=== PATIENT | female | born 1950 ===

== ENCOUNTER 2022-12-18 14:10 | Outpatient (AMB) | payer MEDICARE, SELFPAY ==
--- NOTE | 2022-12-18 14:19 | AM.OFFWIN_ITS ---
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 She has palpitations but denies chest pain or shortness of breath. She moved back to [place] recently and ran out of metoprolol 5 days ago. Skin is warm and dry. O2 sat 98%, pulse [address] Walsh updated, ok for pt to wait for appt. Jeremy [facility] 2:21pm. 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 for a sick visit. Patient is return from [facility] recently. She does not have a primary care provider. She has run out of her metoprolol and requests a refill. Patient has been taking the same medication for many years. [facility] Social History Patient Tobacco Use Status: Never used Tobacco Physical Exam Vital Signs: Last Vital Signs Pulse 55 12/18/22 15:39 BP 122/80 12/18/22 15:39 Pulse Ox 98 12/18/22 15:39 Oxygen Delivery Method Room Air 12/18/22 15:39 BMI result Body Mass Index 28.5 Const General: cooperative and healthy appearing Nutritional Appearance: well nourished Orientation/consciousness: patient oriented x3 Limitations: no limitations HEENT Head: Yes normal to inspection Eyes General: appearance normal, both eyes and all related structures Neck Neck: Yes normal visual inspection Chest Chest palpation & inspection: normal palpation of entire chest wall Resp Effort & Inspection: normal respiratory effort Neuro General: patient oriented x3 Assessment & Plan Assessment & Plan (1) Essential hypertension: Code(s): I10 - Essential (primary) hypertension Plan: Prescription for metoprolol filled. Patient was advised to make an appointment with the primary care provider Medications: New metoprolol succinate ER 50 mg PO BID 60 tabs 0RF Coding Level of Care Code New Pt Level 3 (17416) Diagnoses Essential hypertension I10
[2022-12-18 15:39] VITALS: BP 122/80; PULSE 55; O2SAT 98; BMI 28.5
== END 2022-12-18 16:38 | disposition home or self-care (01) ==
PROVIDERS: PCP Nurse Practitioner Family; Visit Provider Internal Medicine
DX: I10 Essential (primary) hypertension (principal)
CPT/HCPCS: 99203

== ENCOUNTER 2023-01-01 07:27 | Outpatient (AMB) | payer MEDICARE, SELFPAY ==
[2023-01-01 07:30] VITALS: BP 132/80; PULSE 45; O2SAT 98; BMI 28.8
--- NOTE | 2023-01-01 07:30 | A.OFFPC_ITS ---
Vital Signs 01/01/23 07:30 Height 5 ft 7 in Weight 184 lb BMI 28.8 BP 132/80 Blood Pressure Location Lt brachial Position Sitting Pulse 45 L Pulse Source Pulse Oximeter Pulse Oximetry (%) 98 Oxygen Delivery Method Room Air Intake Visit Reasons: New Patient Water Control Supervisor Required: Yes Water Control Supervisor Name: Roxann [id number] Information Interpreted: non-clinical & clinical Allergies No Known Allergies Allergy (Verified 01/01/23 07:30) Tobacco use date assessed: 01/01/23 Fall risk assessment: No Falls in past year Last assessed Fall Risk: 01/01/23 Dental Screening Dental Screen Date: 01/01/23 Did you have a dental visit in the last 12 months?: Yes Did you have a dental problem in the last 6 months where you did not have access to dental care?: No Was dental information given to patient?: Patient has dentist HPI HPI Comments History of Present Illness Details 72-year-old Italian speaking female new patient presents today to establish care. Past medical history significant for hypertension, kidney stone left, thoracic back pain x1 year status post fall. Patient requesting x-ray, thoracic back x-ray ordered. Patient also reports that she was previously followed by cardiology manager was started on aspirin therapy for which sounds like atherosclerotic cardiovascular disease, patient reports she underwent cardiac catheterization in June 2022 which she reports was okay. Patient currently on metoprolol succinate ER 50mg BID for hx HTN and plapitations. Patient reports that she has bilateral leg pain on the medial aspect co knees for which she reports is related to history venous insufficiency, referral entered to vascular surgery. [facility] Medical History (Updated 01/01/23 @ 08:04 by ALCIDES Zheng) Gallstone Borderline high cholesterol Palpitations Family History Mother No problems noted. Father No problems noted. Daughter No problems noted. Son No problems noted. Social History (Updated 01/01/23 @ 07:49 by ALCIDES Zheng) Housing: Other Alcohol intake: never Patient Tobacco Use Status: Never used Tobacco e-Cigarette/Vaping Use: Never Used Second Hand Smoke Exposure: No Current occupational status: retired and disabled Cognitive needs: No Hearing needs: No Vision needs: Yes Questionnaire PHQ-9 Over the last 2 weeks, how often have you been bothered by any of the following problems? 1. Little interest or pleasure in doing things: several days 2. Feeling down, depressed, or hopeless: several days 3. Trouble falling or staying asleep, or sleeping too much: not at all 4. Feeling tired or having little energy: not at all 5. Poor appetite or overeating: not at all 6. Feeling bad about yourself - or that you are a failure or have let yourself or your family down: not at all 7. Trouble concentrating on things, such as reading the newspaper or watching television: not at all 8. Moving or speaking so slowly that other people could have noticed. Or the opposite - being so fidgety or restless that you have been moving around a lot more than usual: not at all 9. Thoughts that you would be better off or of hurting yourself in some way: not at all Total score: 2 Depression Screening Interpretation: Negative 81468 - PHQ-9 Billing: Yes Source: Developed by Drs. Babar Palencia, Leydi Valiente, Danis Ellsworth and colleagues, with an educational yayo from [employer]. Thrive Questionnaire Date Thrive assessed: 01/01/23 I am a: Patient What is your living situation today?: I have a steady place to live Within the past 12 months, did the food you bought not last and you didn't have the money to get more?: Never true Within the past 12 months, did you worry whether your food would run out before you got money to buy more?: Never true Do you have trouble paying for medicines?: No Do you have trouble getting transportation to medical appointments?: No Do you have trouble paying your heating and electricity bill?: No Do you have trouble taking care of your child, family member or friend?: No Do you have trouble with day-to-day activities such as bathing, preparing meals, shopping, managing finances, etc.?: No Are you currently unemployed and looking for a job?: No Are you interested in more education?: No Currently or been in a relationship where the following occur: no concerns reported AUDIT C Alcohol Use Questionnaire (AUDIT-C) 1. How often do you have a drink containing alcohol?: Never 3. How often do you have six or more drinks on one occasion?: Never Total Score: 0 ROBIN-7 AMB Questionnaire ROBIN-7 Date ROBIN - 7 assessed: 01/01/23 Feeling nervous, anxious, or on edge: 1 = Several days Not being able to stop or control worryin = Not at all Worrying too much about different things: 0 = Not at all Trouble relaxin = Not at all Being so restless that it is hard to sit still: 0 = Not at all Becoming easily annoyed or irritable: 0 = Not at all Feeling afraid as if something awful might happen: 0 = Not at all Total ROBIN-7 score (0-4 normal; 5-9 mild; 10-14 moderate; 15-21 severe): 1 Source: Developed by Drs. Babar Palencia, Leydi Valiente, Danis Ellsworth and colleagues, with an educational yayo from [employer]. ROBIN-7 Assessment Billing ROBIN-7 Assessment Tool: ROBIN-7 Assessment 21977 Review of Systems Const Denies chills, Denies fatigue, Denies fever(s) and Denies poor appetite Eyes Denies no additional complaints ENT Reports Normal hearing present Card Denies chest pain, Denies syncope, Denies rapid heart rate and Denies dyspnea Resp Denies cough and Denies dyspnea GI Denies change in stool character, Denies constipation, Denies diarrhea, Denies nausea and Denies vomiting Denies urinary frequency, Denies dysuria and Denies urinary urgency Musc Reports back pain (left sided thoracic back pain.) Neuro Reports Normal hearing present, Denies confusion and Denies syncope Psych Denies confusion Endo Denies fatigue Physical exam (Primary Care) Vital Signs: Last Vital Signs Pulse 45 L 01/01/23 07:30 BP 132/80 01/01/23 07:30 Pulse Ox 98 01/01/23 07:30 Oxygen Delivery Method Room Air 01/01/23 07:30 BMI result Body Mass Index 28.8 Tobacco/Smoking Status: Tobacco use Status Tobacco use date assessed 01/01/23 01/01/23 07:38 Patient Tobacco Use Status Never used Tobacco 01/01/23 07:49 e-Cigarette/Vaping Use Never Used 01/01/23 07:49 PHQ-9: PHQ-9 Score PHQ-9: Total score 2 01/01/23 07:53 Depression Screening Interpretation: Negative Thrive Assessment: Date of Thrive Assessment Date Thrive assessed 01/01/23 01/01/23 07:38 Currently or been in a relationship where the following occur: no concerns reported Const General: No confusion Orientation/consciousness: No confusion HENMT Head: Yes normocephalic and Yes atraumatic Eyes Conjunctivae: conjunctivae normal Chest Chest palpation & inspection: normal inspection of the chest Resp Effort & Inspection: normal respiratory effort Auscultation: clear to auscultation bilaterally, no crackles, no rhonchi and no wheezes Cardio Rate: regular rate Rhythm: regular rhythm Heart sounds: S1 normal heart sound present and S2 normal heart sound present Peripheral pulses: dorsalis pedis present GI Inspection: Yes normal to inspection Neuro General: No confusion Cranial nerves: Yes Normal hearing present Extrem General: No edema and Yes other (dilated veins noted to bilateral medial knees. ) Assessment and Plan Assessment & Plan (1) Venous insufficiency: Code(s): I87.2 - Venous insufficiency (chronic) (peripheral) Plan: Referral entered to vascular surgery. (2) ASCVD (arteriosclerotic cardiovascular disease): Code(s): I25.10 - Atherosclerotic heart disease of [place] coronary artery without angina pectoris Plan: Referral entered to establish care with cardiology manager. Continue on aspirin 81 mg. Fasting lipid panel. (3) Thoracic back pain: Code(s): M54.6 - Pain in thoracic spine Plan: Thoracic spine x-ray ordered to further evaluate. Patient advise can take [id number] Tylenol or ibuprofen as needed for pain. (4) Essential hypertension: Code(s): I10 - Essential (primary) hypertension Plan: Continue on metoprolol. Blood pressure goal less 140/90. Follow low-salt diet and exercise. Plan Follow-up in 3 months for physical exam. Orders: Orders Lipid Panel Today Z13.220 - Encounter for screening for lipoid disorders TSH reflex Free T4 Today Z13.29 - Encounter for screening for other suspected endocrine disorder XR thoracic spine 2V Today M54.6 - Pain in thoracic spine Complete Blood Count Auto Diff Today Z13.0 - Encounter for screening for diseases of the blood and blood-forming organs and certain disorders involving the immune mechanism Comprehensive Taylor. Panel Fast Today I10 - Essential (primary) hypertension Referrals Cardiology Referral I10 - Essential (primary) hypertension, I25.10 - Atherosclerotic heart disease of [place] coronary artery without angina pectoris Vascular Surgery Referral I87.2 - Venous insufficiency (chronic) (peripheral) Coding Level of Care Code New Pt Level 4 (03095) Diagnoses Venous insufficiency I87.2 ASCVD (arteriosclerotic cardiovascular disease) I25.10 Thoracic back pain M54.6 Essential hypertension I10 Additional Codes ROBIN-7 Assessment Billing - ROBIN-7 Assessment Tool: ROBIN-7 Assessment 61866 ([id number])
== END 2023-01-01 08:04 | disposition home or self-care (01) ==
PROVIDERS: PCP Nurse Practitioner Family; Visit Provider Nurse Practitioner Family
DX: I87.2 Venous insufficiency (chronic) (peripheral) (principal); I25.10 Atherosclerotic heart disease of native coronary artery without angina pectoris; M54.6 Pain in thoracic spine; I10 Essential (primary) hypertension
CPT/HCPCS: 99204

== ENCOUNTER 2023-01-01 08:15 | Outpatient (REF) | payer MEDICARE, SELFPAY ==
--- NOTE | ~2023-01-01 | XR_ITS ---
EXAMINATION: XR THORACIC SPINE CLINICAL INFORMATION: Reason for Exam M54.6 - Pain in thoracic spine COMPARISON: None TECHNIQUE: 3 views of the thoracic spine FINDINGS: Vertebral body heights are maintained. Alignment is maintained. Disc space heights are maintained. Atherosclerosis of the thoracic aorta. XR/XR thoracic spine 2V IMPRESSION: Disc space heights are maintained.
== END 2023-01-01 08:16 | disposition home or self-care (01) ==
LOC: HO.XRAY 08:15
PROVIDERS: PCP Nurse Practitioner Family; Visit Provider Nurse Practitioner Family
DX: M54.6 Pain in thoracic spine (principal)
CPT/HCPCS: 72070

== ENCOUNTER 2023-01-02 09:27 | Outpatient (REF) | payer MEDICARE, SELFPAY ==
[2023-01-02 09:50] LABS: MANUAL DIFF FLAG NO
[2023-01-02 10:19] LABS: Basophils Absolute Auto 0.1 X10*3/uL (0.0-0.2); Eosinophils Absolute Auto 0.2 X10*3/uL (0.0-0.4); Eosinophils Percent Auto 4.4 % (0-4); Hematocrit 40.8 % (37.0-47.0); Imm Gran Abs Auto 0.02 X10*3/uL (0.00-0.03); Imm Gran Pct Auto 0.4 % (0.0-0.4); Lymphocytes Absolute Auto 1.7 X10*3/uL (1.2-4.9); Lymphocytes Percent Auto 33.7 % (20-40); Mean Corpuscular HGB Conc 31.9 g/dl (31.0-35.0); Mean Corpuscular Hemoglobin 28.4 pg (27.0-33.0); Mean Corpuscular Volume 89.1 fL (80.0-98.0); Mean Platelet Volume 11.8 fL (9.4-12.3); Monocytes Absolute Auto 0.4 X10*3/uL (0.1-1.2); Neutrophils Absolute Auto 2.6 x10*3/uL (2.0-8.3); Neutrophils Percent Auto 52.5 % (45-73); Platelet Count 182 X10*3/uL (160-400); Red Blood Count 4.58 X10*6/uL (4.20-5.50); Red Cell Distribution Width 13.2 % (11.0-16.0)
[2023-01-02 10:57] LABS: Alanine Aminotransferase 8 U/L (0-31); Albumin Level 4.3 g/dL (3.5-5.0); Alkaline Phosphatase 74 U/L (39-117); Anion Gap 10 (12-20); Aspartate Amino Transferase 14 U/L (5-31); Bilirubin Total 0.5 mg/dL (0.0-1.0); Blood Urea Nitrogen 12 mg/dL (9-16); Calcium 10.1 mg/dL (8.4-10.2); Carbon Dioxide 27 mmol/L (22-29); Chloride 108 mmol/L (96-108); Cholesterol 227 mg/dL (<200); Estimated Glomerular Filt Rate > 60; Glucose Fasting 100 mg/dL (60-99); HDL Cholesterol 49 mg/dL (>40); LDL Cholesterol Calculated 146 mg/dL (<100); Potassium 4.8 mmol/L (3.3-5.1); Sodium 140 mmol/L (135-145); Total Protein 7.4 g/dL (6.5-8.0); Triglycerides 163 mg/dL (<150)
[2023-01-02 11:16] LABS: TSH reflex Free T4 2.45 uIU/mL (0.32-4.0)
== END 2023-01-02 09:28 | disposition home or self-care (01) ==
LOC: HO.LAB 09:27
PROVIDERS: PCP Nurse Practitioner Family; Visit Provider Nurse Practitioner Family
DX: I10 Essential (primary) hypertension (principal); Z13.220 Encounter for screening for lipoid disorders; Z13.0 Encounter for screening for diseases of the blood and blood-forming organs and certain disorders involving the immune mechanism; Z13.29 Encounter for screening for other suspected endocrine disorder
CPT/HCPCS: 36415; 80053; 80061; 84443; 85025

== ENCOUNTER 2023-02-19 11:22 | Outpatient (AMB) | payer MEDICARE, SELFPAY ==
--- NOTE | 2023-02-19 11:25 | MHC.OFFVIS ---
Intake Intake Visit Reasons: bilateral leg pain and swelling Intake Note: pt here today referred by PCP for bilateral leg swelling Pt states she is having lots of pain and swelling in both LE she also says like her legs cramp up and she has difficulty moving. 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 She reports a consistent constant pain. She has had a prior history of back issues. Interesting to note she had a cardiac catheterization in June in the [place]. She has no difficulty ambulating but is concerned about this consistent pain. She now presents for vascular evaluation with daughter at bedside. [facility] Medical History Gallstone Borderline high cholesterol Palpitations Family History Mother No problems noted. Father No problems noted. Daughter No problems noted. Son No problems noted. Social History Housing: Other Alcohol intake: never Patient Tobacco Use Status: Never used Tobacco e-Cigarette/Vaping Use: Never Used Second Hand Smoke Exposure: No Current occupational status: retired and disabled Cognitive needs: No Hearing needs: No Vision needs: Yes Review of Systems Const All systems reviewed & are unremarkable except as noted in HPI and below Reports no additional complaints ENT Reports Normal hearing present Card Denies chest pain, Denies chest pain at rest, Denies chest pain with activity and Denies pedal edema Resp Denies cough GI Denies abdominal pain Musc Denies abnormal gait, Denies muscle cramps and Denies radiating pain into limb Skin/Breast Denies skin ulcer and Denies wounds Neuro Reports Normal hearing present and Denies abnormal gait Psych Reports no additional complaints Physical Exam Const General: cooperative, healthy appearing and comfortable Orientation/consciousness: oriented to person, oriented to place and oriented to time HEENT Head: Yes normal to inspection Neck Neck: Yes normal visual inspection Carotids: no bruits Chest Chest palpation & inspection: normal inspection of the chest Resp Effort & Inspection: normal respiratory effort and able to speak in complete sentences Auscultation: clear to auscultation bilaterally, no crackles, no rales, no rhonchi and no wheezes Cardio Other: Bilateral palpable dorsalis pedis pulse Rate: regular rate Rhythm: regular rhythm Heart sounds: S1 normal heart sound present and S2 normal heart sound present Bruits: no carotid bruits Peripheral pulses: Peripheral pulses 2+ throughout GI Inspection: Yes normal to inspection Skin Wounds: no wounds Hair: normal Neuro General: oriented to person, oriented to place and oriented to time Cranial nerves: Yes CN's II-XII intact bilaterally and Yes Normal hearing present Cognition (Neuro): normal cognition Motor exam (neuro): 5/5 motor strength present throughout Extrem Other: venous exam: +1 edema General: No clubbing, No cyanosis and Yes edema Psych Appearance: grossly normal Mental Status: mental status grossly normal Speech and movement: Normal speech and movement present Assessment & Plan Assessment & Plan (1) Varicose veins of right lower extremity with inflammation: Code(s): I83.11 - Varicose veins of right lower extremity with inflammation Plan: Unclear etiology of lower extremity pain and discomfort. It does not appear to be arterial in nature as she does have palpable pulses. I have taken the liberty of ordering venous insufficiency testing to rule that out. I do believe there is a significant neurogenic component to all of this. This was discussed in detail with the patient and the patient's daughter who was at bedside. They are in agreement. She will follow up with us after testing. Thank you for allowing us to assist in her care. Orders: Orders US venous duplex LE BI 1 Week I83.11 - Varicose veins of right lower extremity with inflammation Coding Level of Care Code New Pt Level 4 (92753) Diagnoses Varicose veins of right lower extremity with inflammation I83.11
== END 2023-02-19 11:54 | disposition home or self-care (01) ==
PROVIDERS: PCP Nurse Practitioner Family; Visit Provider Surgery Vascular Surgery
DX: I83.11 Varicose veins of right lower extremity with inflammation (principal)
CPT/HCPCS: 99203

== ENCOUNTER → 2023-02-19 11:22 | Outpatient (BNVA) | payer MEDICARE, SELFPAY | PROVIDERS: PCP Nurse Practitioner Family; Visit Provider Surgery Vascular Surgery | DX: I83.11 Varicose veins of right lower extremity with inflammation (principal) | CPT/HCPCS: 99202 ==

== ENCOUNTER 2023-03-08 08:14 | Outpatient (REF) | payer MEDICARE, SELFPAY ==
--- NOTE | ~2023-03-08 | US_ITS ---
EXAMINATION: US VENOUS BILATERAL LOWER EXTREMITIES (REFLUX EXAM) CLINICAL INDICATION: Leg pain and varicose veins. COMPARISON: None TECHNIQUE: Color flow triplex imaging and compression Doppler was performed to evaluate both the deep and the superficial systems bilaterally. To evaluate the superficial system, the examination was performed in the upright position. Color-flow Doppler ultrasound and compression ultrasound were utilized. In addition, maneuvers were utilized to demonstrate reflux. FINDINGS: 1. DEEP VENOUS ULTRASOUND OF THE RIGHT LOWER EXTREMITY: Respiratory variation, normal compression and augmented flow are noted in the right common femoral vein as well as the right popliteal vein and there is no evidence of deep venous thrombosis at these locations. There is no evidence of reflux in the deep system in either the common femoral vein or the popliteal vein. There is no evidence of a Arias's cyst. 2. SUPERFICIAL ULTRASOUND WITH DOPPLER OF RIGHT LOWER EXTREMITY: The right great saphenous vein at the saphenofemoral junction measures 9 mm, at the proximal thigh 4 mm, at the mid thigh 3 mm, above the knee 5 mm, at the knee 3 mm, [id number] 2 mm, midcalf 2 mm and at the ankle measures 2 mm. There is no reflux demonstrated in the right great saphenous vein. Duplicated Right Great Saphenous Vein: None The right small saphenous vein measures 2 mm and shows no reflux. Accessory Vein of [place]: None Incompetent Perforators: None Varices Present: None 3. DEEP VENOUS ULTRASOUND OF THE LEFT LOWER EXTREMITY: Respiratory variation, normal compression and augmented flow are noted in the left common femoral vein as well as the left popliteal vein and there is no evidence of deep venous thrombosis at these locations. There is no evidence of reflux in the deep system in either the common femoral vein or the popliteal vein. There is no evidence of a Arias's cyst. 4. SUPERFICIAL ULTRASOUND WITH DOPPLER OF LEFT LOWER EXTREMITY: Left great saphenous vein at the saphenofemoral junction measures 11 mm, at the proximal thigh 11 mm, at the mid thigh 4 mm, above the knee 5 mm, at the knee 5 mm, [id number] 3 mm, midcalf 1 mm and at the ankle measures 2 mm. There is no reflux demonstrated in the left great saphenous vein. Duplicated Left Great Saphenous Vein: None The left small saphenous vein measures 2 mm and shows no reflux. Accessory Vein of [place]: None Incompetent Perforators: None. Varices Present: None US/US venous duplex LE BI IMPRESSION: 1. No evidence of reflux or thrombus in the common femoral veins or popliteal veins bilaterally. 2. The saphenous systems are competent bilaterally.
== END 2023-03-08 08:15 | disposition home or self-care (01) ==
LOC: HO.US 08:14
PROVIDERS: PCP Nurse Practitioner Family; Visit Provider Surgery Vascular Surgery
DX: I83.11 Varicose veins of right lower extremity with inflammation (principal)
CPT/HCPCS: 93970

== ENCOUNTER 2023-04-18 13:28 | Outpatient (AMB) | payer MEDICARE, SELFPAY ==
--- NOTE | 2023-04-18 13:50 | MHC.OFFVIS ---
Intake Vital Signs 04/18/23 13:51 Height 5 ft 7 in Weight 184 lb BMI 28.8 Intake Visit Reasons: Follow Up US Intake Note: follow up US 03/08/23, for VV, Right LE worse than Left LE, does have some spider veins and large veins. complains of right knee pain Patient Care Technician Name: Kellie [id number] Accompanied by: Self / Same As Patient Allergies No Known Allergies Allergy (Verified 04/18/23 13:54) HPI Follow Up US HPI Details Very pleasant 73-year-old female presents for follow-up regarding venous insufficiency. She reports no significant difficulty. She does have some pain over the right knee which appears to be more the tendon above the patella. No other interval issues. Now presents for follow-up with venous insufficiency testing. [facility] Medical History Gallstone Borderline high cholesterol Palpitations Family History Mother No problems noted. Father No problems noted. Daughter No problems noted. Son No problems noted. Social History Housing: Other Alcohol intake: never Patient Tobacco Use Status: Never used Tobacco e-Cigarette/Vaping Use: Never Used Second Hand Smoke Exposure: No Current occupational status: retired and disabled Cognitive needs: No Hearing needs: No Vision needs: Yes Review of Systems Const All systems reviewed & are unremarkable except as noted in HPI and below Reports no additional complaints ENT Reports Normal hearing present Card Denies chest pain, Denies chest pain at rest, Denies chest pain with activity and Denies pedal edema Resp Denies cough GI Denies abdominal pain Musc Denies abnormal gait, Denies muscle cramps and Denies radiating pain into limb Skin/Breast Denies skin ulcer and Denies wounds Neuro Reports Normal hearing present and Denies abnormal gait Psych Reports no additional complaints Physical Exam Vital Signs: BMI result Body Mass Index 28.8 Const General: cooperative, healthy appearing and comfortable Orientation/consciousness: oriented to person, oriented to place and oriented to time HEENT Head: Yes normal to inspection Neck Neck: Yes normal visual inspection Carotids: no bruits Chest Chest palpation & inspection: normal inspection of the chest Resp Effort & Inspection: normal respiratory effort and able to speak in complete sentences Auscultation: clear to auscultation bilaterally, no crackles, no rales, no rhonchi and no wheezes Cardio Rate: regular rate Rhythm: regular rhythm Heart sounds: S1 normal heart sound present and S2 normal heart sound present Bruits: no carotid bruits Peripheral pulses: Peripheral pulses 2+ throughout GI Inspection: Yes normal to inspection Skin Wounds: no wounds Hair: normal Neuro General: oriented to person, oriented to place and oriented to time Cranial nerves: Yes CN's II-XII intact bilaterally and Yes Normal hearing present Cognition (Neuro): normal cognition Motor exam (neuro): 5/5 motor strength present throughout Extrem Other: venous exam: No significant superficial varicosities or spider telangiectasias, minimal edema General: No clubbing, No cyanosis and No edema Psych Appearance: grossly normal Mental Status: mental status grossly normal Speech and movement: Normal speech and movement present Results Reviewed Results Reviewed: Brief summary of venous insufficiency testing is as follows: right great saphenous vein: negative right small saphenous vein: negative right accessory vein: none present left great saphenous vein: negative left small saphenous vein: negative left accessory vein: none present Please note there is no evidence of any venous aneurysms or significant tortuosity Assessment & Plan Assessment & Plan (1) Varicose veins of right lower extremity with inflammation: Code(s): I83.11 - Varicose veins of right lower extremity with inflammation Plan: In short patient is negative for any significant venous insufficiency. She does appear to have right knee discomfort. Should pain and symptoms persist may benefit from orthopedic evaluation. She will follow up with us on an as-needed basis. Thank you for allowing us to assist in her care. If there are any questions or concerns please do not hesitate to contact us. Coding Level of Care Code Est Pt Level 4 (00125) Diagnoses Varicose veins of right lower extremity with inflammation I83.11
[2023-04-18 13:51] VITALS: BMI 28.8
== END 2023-04-18 14:11 | disposition home or self-care (01) ==
PROVIDERS: PCP Nurse Practitioner Family; Visit Provider Surgery Vascular Surgery
DX: I83.11 Varicose veins of right lower extremity with inflammation (principal)
CPT/HCPCS: 99213

== ENCOUNTER → 2023-04-18 13:28 | Outpatient (BNVA) | payer MEDICARE, SELFPAY | PROVIDERS: PCP Nurse Practitioner Family; Visit Provider Surgery Vascular Surgery | DX: I83.11 Varicose veins of right lower extremity with inflammation (principal) | CPT/HCPCS: 99212 ==

== ENCOUNTER 2023-05-13 11:54 | Outpatient (AMB) | payer MEDICARE, SELFPAY ==
--- NOTE | 2023-05-13 12:53 | MHC.OFFVIS ---
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 History was obtained with help of for news assignment editor at bedside. Patient says about 9 months ago she was in [place] therefore couple years and was having precordial chest pain. She says she underwent a cardiac catheterization that and was told everything was normal and she can go back to all exertional activity without any restriction. She also had an echocardiogram there and was told everything was normal. I do not have access to any of these reports. She describes sharp pains in her chest which is not exertional in nature. She has been told that this could be costochondritis. She also complains of exertional shortness of breath when she climbs a flight of stairs but says that this problem has been existent ever since she was young woman and now is got worse. She does not exercise on a regular basis. She does have high cholesterol for which she has currently not on any treatment. She also has history of high blood pressure for which she is on metoprolol. We do not have any of the copy of the records from [facility]. FOR[facility]LY [facility], [facility] Medical History Gallstone Borderline high cholesterol Palpitations Family History Mother No problems noted. Father No problems noted. Daughter No problems noted. Son No problems noted. Social History Housing: Other Alcohol intake: never Patient Tobacco Use Status: Never used Tobacco e-Cigarette/Vaping Use: Never Used Second Hand Smoke Exposure: No Current occupational status: retired and disabled Cognitive needs: No Hearing needs: No Vision needs: Yes Review of Systems Const Denies chills, Denies daytime sleepiness, Denies fatigue, Denies fever(s), Denies frequent falls, Denies poor appetite, Denies snoring, Denies stops breathing during sleep, Denies weakness, Denies weight gain and Denies weight loss Eyes Denies loss of vision ENT Denies dizziness and Denies hearing loss Card Denies chest pain, Denies claudication, Denies leg edema, Denies lightheadedness, Denies palpitations, Denies dyspnea, Denies dyspnea on exertion and Denies orthopnea Resp Denies cough, Denies excessive phlegm production, Denies dyspnea, Denies dyspnea on exertion, Denies snoring and Denies wheezing GI Denies abdominal pain, Denies hematochezia, Denies change in bowel habits, Denies nausea and Denies vomiting Denies urinary frequency and Denies dysuria Musc Denies arthralgias, Denies muscle weakness, Denies numbness and Denies other (frequent falls) Skin/Breast Denies nail changes and Denies rash Neuro Denies Abnormal speech present, Denies dizziness, Denies frequent falls, Denies loss of vision, Denies memory loss, Denies numbness and Denies weakness Psych Denies depression and Denies memory loss Endo Denies fatigue and Denies palpitations Elio/Lymph Reports easy bruising and Reports other (anemia) Aller/Immun Denies wheezing Physical Exam Vital Signs: Last Vital Signs Pulse 58 05/13/23 12:56 BP 130/66 05/13/23 12:56 BMI result Body Mass Index 31.0 Const General: cooperative, comfortable, no acute distress, alert and awake Nutritional Appearance: obese Orientation/consciousness: patient oriented x3 Limitations: no limitations HEENT Head: Yes normocephalic and Yes atraumatic Neck Neck: Yes trachea midline, Yes supple and Yes no JVD Resp Effort & Inspection: normal respiratory effort Auscultation: clear to auscultation bilaterally Cardio Jugular venous distension: no JVD Palpation: normal PMI Rate: regular rate Rhythm: regular rhythm Heart sounds: S1 normal heart sound present, S2 normal heart sound present, no click, no gallops, no murmurs and no rubs GI Auscultation: normal bowel sounds Skin General skin exam: no rashes or lesions noted Neuro General: patient oriented x3 and no focal motor deficits Speech: No Abnormal speech present Extrem General: Yes no clubbing, cyanosis or edema Psych Appearance: grossly normal Office Procedures EKG Details: EKG shows sinus bradycardia at 58 beats per minute otherwise normal EKG 80056-[id number], Complete Assessment & Plan Assessment & Plan (1) Non-cardiac chest pain: Code(s): R07.89 - Other chest pain Plan: Patient has left-sided chest pain which is sharp in nature and not exertional in nature. Unlikely to represent myocardial ischemia. In addition she had recent cardiac catheterization in [facility] which was reported as having no issues and was told that she could exercise without any limitations. Not sure whether she would any evidence of atherosclerosis worse as she had normal coronary arteries. This will need to be reviewed as this will change in management plan. If she in fact has no significant coronary artery disease no further workup is indicated for myocardial ischemia at this point time and a chest pain appears to be musculoskeletal possibly related to costochondritis. Exertional shortness of breath in absence of any significant cardiac findings and normal echocardiogram within last year is most likely related to deconditioning. Pulmonary workup can be considered. I would like to obtain a copy of her prior test results and have advised her to get them for us from [facility]. She will work on it. For now no further cardiac workup is being recommended. In terms of her high cholesterol management, if she has any evidence of atherosclerosis, would consider statin therapy to target goal LDL less than 70 mg/dL. She is encouraged to maintain heart healthy lifestyle and participate in regular physical activity. Will follow up in the clinic if need be. Thank you for allowing me to partake in the care Coding Level of Care Code New Pt Level 3 (78290) Diagnoses Non-cardiac chest pain R07.89 CPT Codes EKG - CPT: 71052-[id number], Complete ([id number])
[2023-05-13 12:56] VITALS: BP 130/66; PULSE 58; BMI 31.0
== END 2023-05-13 13:22 | disposition home or self-care (01) ==
PROVIDERS: PCP Nurse Practitioner Family; Visit Provider Internal Medicine Cardiovascular Disease
DX: R07.89 Other chest pain (principal)
CPT/HCPCS: 93010; 99203

== ENCOUNTER → 2023-05-13 11:54 | Outpatient (BNVA) | payer MEDICARE, SELFPAY | PROVIDERS: PCP Nurse Practitioner Family; Visit Provider Internal Medicine Cardiovascular Disease | DX: R07.89 Other chest pain (principal) | CPT/HCPCS: 93005; 99202 ==